=== PATIENT | female | born 1950 | race Caucasian/White ===

== ENCOUNTER → 2018-09-16 11:01 | Outpatient (CLI) | payer OTHER, SELFPAY ==
--- NOTE | 2018-09-16 11:06 | DI.MG.S_ITS ---
BILATERAL DIGITAL SCREENING MAMMOGRAM 3D/2D WITH CAD: 09/16/2018 CLINICAL: Routine screening. Comparison is made to exams dated: 01/14/2015 mammogram, 11/15/2007 mammogram, and 11/02/2007 mammogram - [facility]. The tissue of both breasts is heterogeneously dense. This may lower the sensitivity of mammography. Current study was also evaluated with a Computer Aided Detection (CAD) system. There is possible architectural distortion in the right breast posterior depth outer region seen on the craniocaudal view only. This is new from comparison exam of 01/14/2015 and best seen on [facility] tomosynthesis image 25/78. No other significant masses, calcifications, or other findings are seen in either breast. There are vascular calcifications in the left breast and multiple mole markers overlying the left breast. IMPRESSION: INCOMPLETE: NEEDS ADDITIONAL IMAGING EVALUATION The possible architectural distortion in the right breast is indeterminate. Additional views with possible ultrasound are recommended. This exam was interpreted at Station ID: [id number]. NOTE: For mammograms, a report in lay terms will be sent to the patient. Approximately 15% of breast malignancies will not be visualized mammographically. In the management of a palpable breast mass, a negative mammogram must not discourage biopsy of a clinically suspicious lesion. Electronically Signed By: Arya Duke M.D. ecl/:09/16/2018 19:32:35 letter sent: Additional Imaging Needed ACR BI-RADS Category 0: Incomplete [id number]
== END ==
PROVIDERS: PCP Family Medicine; Visit Provider Family Medicine
DX: Z12.31 Encounter for screening mammogram for malignant neoplasm of breast (principal)
CPT/HCPCS: 77063; 77067

== ENCOUNTER → 2018-10-03 09:57 | Outpatient (CLI) | payer OTHER, SELFPAY ==
--- NOTE | 2018-10-03 | DI.MG.S_ITS ---
UNILATERAL RIGHT DIGITAL DIAGNOSTIC MAMMOGRAM 3D/2D WITH ADDITIONAL VIEWS: 10/03/2018 CLINICAL: Additional evaluation requested from prior study. Comparison is made to exams dated: 09/16/2018 mammogram, 01/14/2015 mammogram, and 11/15/2007 mammogram - [facility]. The tissue of right breast is heterogeneously dense. This may lower the sensitivity of mammography. There is subtle persistent architectural distortion in the right breast at 11 o'clock middle depth that appears less prominent on additional imaging today. No other significant masses or calcifications are seen in the breast. IMPRESSION: INCOMPLETE: NEEDS ADDITIONAL IMAGING EVALUATION The subtle architectural distortion in the right breast appears less conspicuous on additional imaging today but remains indeterminate. An ultrasound is recommended. This was scheduled to follow mammographic evaluation today, but the patient had to leave before the sonogram could be performed. The patient will be contacted to reschedule the ultrasound appointment. This exam was interpreted at Station ID: [id number]. NOTE: For mammograms, a report in lay terms will be sent to the patient. Approximately 15% of breast malignancies will not be visualized mammographically. In the management of a palpable breast mass, a negative mammogram must not discourage biopsy of a clinically suspicious lesion. Electronically Signed By: Nikolas Sousa M.D. aty/:10/04/2018 07:23:07 Entry: - 10/04/2018 07:23:07 letter sent: Need Ultrasound ACR BI-RADS Category 0: Incomplete [id number]
== END ==
PROVIDERS: PCP Family Medicine; Visit Provider Family Medicine
DX: R92.8 Other abnormal and inconclusive findings on diagnostic imaging of breast (principal)
CPT/HCPCS: 77065; G0279

== ENCOUNTER → 2018-10-11 12:47 | Outpatient (CLI) | payer OTHER, SELFPAY ==
--- NOTE | 2018-10-11 | DI.US.S_ITS ---
LIMITED ULTRASOUND OF RIGHT BREAST: 10/11/2018 CLINICAL: Additional views Additional evaluation requested from prior study. Comparison is made to exams dated: 10/03/2018 mammogram, 09/16/2018 mammogram, and 11/15/2007 [facility]. Real-time ultrasound of the right breast was performed on the area of interest. There is 0.9 cm x 0.7 cm x 0.8 cm oval mass with an indistinct margin in the right breast at 11 o'clock anterior depth. This oval mass is hyperechoic. This correlates with mammography findings. Color flow imaging demonstrates that there is no vascularity present. IMPRESSION: PROBABLY BENIGN The 0.9 cm x 0.7 cm x 0.8 cm oval mass in the right breast resembles fat necrosis and is probably benign. Follow-up mammogram and ultrasound in 6 months is recommended. A follow-up mammogram and an ultrasound in 6 months is recommended to demonstrate stability. This exam was interpreted at Station ID: [id number]. Electronically Signed By: Juan cano/katharine:10/11/2018 14:24:46 letter sent: Followup Recommended Ultrasound BI-RADS: 3 Probably benign
== END ==
PROVIDERS: PCP Family Medicine; Visit Provider Family Medicine
DX: R92.8 Other abnormal and inconclusive findings on diagnostic imaging of breast (principal); N63.11 Unspecified lump in the right breast, upper outer quadrant
CPT/HCPCS: 76642

== ENCOUNTER 2020-05-10 06:19 | Emergency (ER) | payer MEDICARE, OTHER, SELFPAY ==
[2020-05-10] VITALS (7 sets, daily range): BP systolic 115–132; BP diastolic 60–88; PULSE 55–60; RESP 12–18; TEMP 36.4; O2SAT 98–100
--- NOTE | 2020-05-10 06:21 | DI.RAD.S_ITS ---
PROCEDURE: XR CHEST 1V INDICATIONS: chest pressure TECHNIQUE: One view of the chest was acquired. COMPARISON: None. FINDINGS: Surgical changes and devices: None. Lungs and pleura: Lungs are clear. No pleural effusions or pneumothorax. Mediastinum: Mediastinal contours appear normal. Heart size is normal. Bones and chest wall: No suspicious bony lesions. Overlying soft tissues appear unremarkable. IMPRESSION: No acute cardiopulmonary disease process. Dictated by: Marie Nickerson MD, PhD on 05/10/2020 at 8:27 Approved by: Marie Nickerson MD, PhD on 05/10/2020 at 8:27
--- NOTE | 2020-05-10 06:39 | ED_ITS ---
HPI - Syncope <Foreign Feliz DO - Last Filed: 05/10/20 22:36> General Chief Complaint: Syncope Stated Complaint: tightness in chest area since last night Time Seen by Provider: 05/10/20 06:21 Source: patient Mode of arrival: Wheelchair Limitations: no limitations History of Present Illness HPI narrative: 69-year-old female nonsmoker with non contributory medical history presents with a chief complaint anterior chest pain that started yesterday morning and has largely persisted since. She states that at times it is sharp and other times heavy. She denies any radiation of her pain and states that is worse with palpation. She denies any injury or overuse. She denies any history of the same. She feels short of breath and has been nauseated. She questions whether not the nausea may be related to the pain. She had no improvement with aspirin. She states that this morning she started feeling nauseated and upon standing up she felt extremely lightheaded and then had a syncopal episode. It was not witnessed but when her came to her side she was still unconscious and struggling to breathe until he reposition her head, she quickly woke up. She does state that she has had increased fatigue with exertion over the past few months. She denies any recent travel, cough or hemoptysis. She denies exposure to persons known or under suspicion to have COVID-19. She does state that she has had syncope from vasovagal scenarios in the past with nausea and vomiting and often pain brings on significant nausea for her. complaint: loss of consciousness Onset (ago): minute(s) -: minutes(s) Prodromal symptoms: lightheaded, chest pain, shortness of breath and kaushik sea/vomiting Witnessed: no Context: standing up and related to severe pain Injuries sustained associated with event: none Current symptoms: chest pain Treatments prior to arrival: none Related Data Home Medications Medication Instructions Recorded Confirmed No Known Home Medications 11/07/18 11/07/18 Allergies Allergy/AdvReac Type Severity Reaction Status Date / Time amoxicillin [AMOXICILLIN] Allergy Severe BRADYCARDIA, Verified 11/07/18 11:19 HYPOTENSIVE lidocaine [LIDOCAINE] Allergy Severe HYPOTENSIVE Verified 11/07/18 11:19 AND BRADYCARDIA procaine [From Novocain] Allergy Severe Hypotension Verified 05/10/20 07:02 Arnica (Arnica [place]) Allergy Mild RASH Verified 11/07/18 11:19 [ARNICA] mercury (elemental) Allergy Mild RASH, ITCHY Verified 11/07/18 11:19 [MERCURY (ELEMENTAL)] Review of Systems <Foreign Feliz DO - Last Filed: 05/10/20 22:36> Constitutional Constitutional: Denies chills, Denies fatigue, Denies fever(s), Denies frequent falls, Denies lethargy and Denies weakness Eyes Eyes: Denies change in vision, Denies eye discharge, Denies irritation and Denies loss of vision ENT Ears, Nose, Mouth, and Throat: Denies change in voice, Denies dizziness, Denies neck pain, Denies sore throat and Denies throat swelling Cardiovascular Cardiovascular: Reports chest pain, Reports syncope, Denies irregular heart rhythm, Reports lightheadedness, Denies palpitations, Denies dyspnea, Denies dyspnea on exertion and Denies orthopnea Respiratory Respiratory: Denies cough, Denies dyspnea, Denies dyspnea on exertion and Denies wheezing Gastrointestinal Gastrointestinal: Denies abdominal pain, Denies change in bowel habits, Denies diarrhea, Reports nausea and Denies vomiting Musculoskeletal Musculoskeletal: Denies neck pain and Denies numbness Integumentary/Breasts Skin/Breast: Denies pruritus, Denies erythema, Denies rash and Denies wounds Neurologic Neurologic: Denies behavioral changes, Denies confusion, Denies dizziness, Reports syncope, Denies frequent falls, Denies loss of vision, Denies numbness and Denies weakness Psychiatric Psychiatric: Denies anxiety, Denies behavioral changes, Denies confusion, Denies depression, Denies homicidal ideation and Denies suicidal ideation Endocrine Endocrine: Denies fatigue, Denies flushing and Denies palpitations Hematologic/Lymphatic Hematologic/Lymphatic: Denies easy bruising Allergic/Immunologic Allergic/Immunologic: Denies urticaria, Denies throat swelling and Denies wheezing Patient History <Foreign Feliz DO - Last Filed: 05/10/20 22:36> Surgical History History of cataract removal with insertion of prosthetic lens Status post hysterectomy Status post parathyroidectomy Family History Brother Age: 70 Hypertension Father Heart disease High cholesterol Mother Heart disease Hypertension Grandfather Heart disease Grandmother Heart disease Sister Age: 68 High cholesterol Social History marital status: Smoking Status: Never smoker alcohol intake: current (ON OCCASION ) substance use type: does not use Smoking Status: Never smoker Substance Use Type: does not use Exam <DO Valentine Hartman Last Filed: 05/10/20 22:36> Narrative Exam Narrative: GENERAL: [69] year old patient appears stated age. Well- nourished, well-developed patient, in mild distress. HEAD: Atraumatic. Normocephalic. EYES: Pupils equal round and reactive. Extraocular motions intact. No scleral icterus. No injection or drainage. ENT: Nose without bleeding, purulent drainage. Throat without erythema, tonsillar hypertrophy or exudate. Airway patent. NECK: Trachea midline. Non tender CARDIOVASCULAR: Regular rate and rhythm without murmurs, gallops, or rubs. Anterior chest tender to palpation with minor palpable swelling, no redness, warmth, or fluctuance. RESPIRATORY: Clear to auscultation. Breath sounds equal bilaterally. No wheezes, rales, or rhonchi. GASTROINTESTINAL: Abdomen soft, non-tender, nondistended. EXTREMITIES: No edema or joint tenderness. BACK: Nontender without deformity or crepitance. No flank tenderness. NEURO: AOx3. SKIN: No rash or erythema of visible areas Initial Vital Signs Initial Vital Signs: Vital Signs Temperature 97.5 F L 05/10/20 06:20 Pulse Rate 60 05/10/20 06:20 Respiratory Rate 18 05/10/20 06:20 Blood Pressure 115/88 05/10/20 06:20 Pulse Oximetry 99 05/10/20 06:20 <Brittaney Forte DO - Last Filed: 05/10/20 09:50> Initial Vital Signs Initial Vital Signs: Vital Signs Temperature 97.5 F L 05/10/20 06:20 Pulse Rate 60 05/10/20 06:20 Respiratory Rate 18 05/10/20 06:20 Blood Pressure 115/88 05/10/20 06:20 Pulse Oximetry 99 05/10/20 06:20 Course <Foreign Feliz DO - Last Filed: 05/10/20 22:36> Orders Ordered: Discontinued Medications Aspirin (Aspirin Chew) 324 mg PO NOW ONE Stop: 05/10/20 06:22 Last Admin: 05/10/20 06:44 Dose: 324 mg Documented by: RMARTIN Sodium Chloride (Normal Saline 0.9%) 1,000 mls @ 150 mls/hr IV CONT [facility] Last Infusion: 05/10/20 09:32 Dose: 0 mls/hr Documented by: Admin: 05/10/20 06:44 Dose: 150 mls/hr Documented by: RMARTIN Ketorolac Tromethamine (Toradol) 30 mg IV NOW ONE Stop: 05/10/20 07:36 Last Admin: 05/10/20 08:02 Dose: 30 mg Documented by: MARIANO Vital Signs Vital signs: Vital Signs - 8 hr 05/10/20 06:20 05/10/20 06:53 05/10/20 07:00 Temperature 97.5 F L Pulse Rate 60 60 57 L Respiratory Rate 18 15 12 Blood Pressure 115/88 132/60 Pulse Oximetry 99 98 98 05/10/20 07:30 05/10/20 07:31 05/10/20 08:00 Temperature Pulse Rate 59 L 57 L 57 L Respiratory Rate 16 12 13 Blood Pressure 126/64 130/65 Pulse Oximetry 100 99 99 <Brittaney Forte, DO - Last Filed: 05/10/20 09:50> Orders Ordered: Discontinued Medications Aspirin (Aspirin Chew) 324 mg PO NOW ONE Stop: 05/10/20 06:22 Last Admin: 05/10/20 06:44 Dose: 324 mg Documented by: RMARTIN Sodium Chloride (Normal Saline 0.9%) 1,000 mls @ 150 mls/hr IV CONT [facility] Last Infusion: 05/10/20 09:32 Dose: 0 mls/hr Documented by: Admin: 05/10/20 06:44 Dose: 150 mls/hr Documented by: RMARTIN Ketorolac Tromethamine (Toradol) 30 mg IV NOW ONE Stop: 05/10/20 07:36 Last Admin: 05/10/20 08:02 Dose: 30 mg Documented by: MARIANO Vital Signs Vital signs: Vital Signs - 8 hr 05/10/20 06:20 05/10/20 06:53 05/10/20 07:00 Temperature 97.5 F L Pulse Rate 60 60 57 L Respiratory Rate 18 15 12 Blood Pressure 115/88 132/60 Pulse Oximetry 99 98 98 05/10/20 07:30 05/10/20 07:31 05/10/20 08:00 Temperature Pulse Rate 59 L 57 L 57 L Respiratory Rate 16 12 13 Blood Pressure 126/64 130/65 Pulse Oximetry 100 99 99 MDM - Syncope <Foreign Feliz, - Last Filed: 05/10/20 22:36> Lab Data Result diagrams: 05/10/20 06:35 05/10/20 06:35 Labs: Lab Results 05/10/20 05/10/20 05/10/20 Range/Units 06:35 06:35 06:35 WBC 6.1 (4.5-11.0) X10^3/uL RBC 4.74 (4.0-5.2) X10^6/uL Hgb 14.4 (12.0-16.0) g/dL Hct 42.3 (36-46) % MCV 89.3 (80-100) fL MCH 30.5 (26-34) PG MCHC 34.2 (30-36) % RDW 13.1 (11.6-14.8) % Plt Count 190 (150-400) X10^3/uL Neut % (Auto) 61.8 (50-75) % Lymph % (Auto) 26.8 (25-40) % Converse % (Auto) 6.6 (3-14) % Eos % (Auto) 3.9 (2-4) % Baso % (Auto) 0.9 (0-2) % Neut # (Auto) 3800 (9406-9876) /uL Lymph # (Auto) 1600 (0879-5143) /uL Converse # (Auto) 400 (0-900) /uL Eos # (Auto) 200 (0-450) /uL Baso # (Auto) 100 (0-100) /uL PT 11.0 (10.1-12.7) SECONDS INR 1.0 (0.9-1.3) D-Dimer 202 (<230) ng/mL Sodium 138 (137-145) mmol/L Potassium 4.1 (3.4-5.1) mmol/L Chloride 104 (98-107) mmol/L Carbon Dioxide 24 (22-32) mmol/L BUN 16 (7-17) mg/dL Creatinine 0.98 (0.52-1.04) mg/dL Estimated GFR 56.3 L (>60) mL/min BUN/Creatinine Ratio 16.3 (6-22) Glucose 125 H (80-110) mg/dL Calcium 10.0 (8.4-10.2) mg/dL Total Bilirubin 0.9 (0.2-1.3) mg/dL AST 44 H (14-36) IU/L ALT 39 H (<35) IU/L Alkaline Phosphatase 74 (38-126) U/L Total Creatine Kinase 52 (30-135) U/L CK-MB (CK-2) TNP CK-MB (CK-2) Rel Index TNP Troponin I < 0.012 (0.01-0.034) ng/mL NT-Pro-B Natriuret Pep 47 (<125) pg/mL Total Protein 7.5 (6.3-8.2) g/dL Albumin 4.4 (3.5-5.0) g/dL Globulin 3.1 (1.7-4.1) g/dL Albumin/Globulin Ratio 1.4 (1.0-2.8) Lipase 139 (23-300) U/L 05/10/20 Range/Units 08:35 WBC (4.5-11.0) X10^3/uL RBC (4.0-5.2) X10^6/uL Hgb (12.0-16.0) g/dL Hct (36-46) % MCV (80-100) fL MCH (26-34) PG MCHC (30-36) % RDW (11.6-14.8) % Plt Count (150-400) X10^3/uL Neut % (Auto) (50-75) % Lymph % (Auto) (25-40) % Converse % (Auto) (3-14) % Eos % (Auto) (2-4) % Baso % (Auto) (0-2) % Neut # (Auto) (9621-4473) /uL Lymph # (Auto) (7069-4133) /uL Converse # (Auto) (0-900) /uL Eos # (Auto) (0-450) /uL Baso # (Auto) (0-100) /uL PT (10.1-12.7) SECONDS INR (0.9-1.3) D-Dimer (<230) ng/mL Sodium (137-145) mmol/L Potassium (3.4-5.1) mmol/L Chloride (98-107) mmol/L Carbon Dioxide (22-32) mmol/L BUN (7-17) mg/dL Creatinine (0.52-1.04) mg/dL Estimated GFR (>60) mL/min BUN/Creatinine Ratio (6-22) Glucose (80-110) mg/dL Calcium (8.4-10.2) mg/dL Total Bilirubin (0.2-1.3) mg/dL AST (14-36) IU/L ALT (<35) IU/L Alkaline Phosphatase (38-126) U/L Total Creatine Kinase (30-135) U/L CK-MB (CK-2) CK-MB (CK-2) Rel Index Troponin I < 0.012 (0.01-0.034) ng/mL NT-Pro-B Natriuret Pep (<125) pg/mL Total Protein (6.3-8.2) g/dL Albumin (3.5-5.0) g/dL Globulin (1.7-4.1) g/dL Albumin/Globulin Ratio (1.0-2.8) Lipase (23-300) U/L <Brittaney Forte, DO - Last Filed: 05/10/20 09:50> Lab Data Attestation: I reviewed the patient's lab results. Labs: Lab Results 05/10/20 05/10/20 05/10/20 Range/Units 06:35 06:35 06:35 WBC 6.1 (4.5-11.0) X10^3/uL RBC 4.74 (4.0-5.2) X10^6/uL Hgb 14.4 (12.0-16.0) g/dL Hct 42.3 (36-46) % MCV 89.3 (80-100) fL MCH 30.5 (26-34) PG MCHC 34.2 (30-36) % RDW 13.1 (11.6-14.8) % Plt Count 190 (150-400) X10^3/uL Neut % (Auto) 61.8 (50-75) % Lymph % (Auto) 26.8 (25-40) % Converse % (Auto) 6.6 (3-14) % Eos % (Auto) 3.9 (2-4) % Baso % (Auto) 0.9 (0-2) % Neut # (Auto) 3800 (5516-5196) /uL Lymph # (Auto) 1600 (6959-0939) /uL Converse # (Auto) 400 (0-900) /uL Eos # (Auto) 200 (0-450) /uL Baso # (Auto) 100 (0-100) /uL PT 11.0 (10.1-12.7) SECONDS INR 1.0 (0.9-1.3) D-Dimer 202 (<230) ng/mL Sodium 138 (137-145) mmol/L Potassium 4.1 (3.4-5.1) mmol/L Chloride 104 (98-107) mmol/L Carbon Dioxide 24 (22-32) mmol/L BUN 16 (7-17) mg/dL Creatinine 0.98 (0.52-1.04) mg/dL Estimated GFR 56.3 L (>60) mL/min BUN/Creatinine Ratio 16.3 (6-22) Glucose 125 H (80-110) mg/dL Calcium 10.0 (8.4-10.2) mg/dL Total Bilirubin 0.9 (0.2-1.3) mg/dL AST 44 H (14-36) IU/L ALT 39 H (<35) IU/L Alkaline Phosphatase 74 (38-126) U/L Total Creatine Kinase 52 (30-135) U/L CK-MB (CK-2) TNP CK-MB (CK-2) Rel Index TNP Troponin I < 0.012 (0.01-0.034) ng/mL NT-Pro-B Natriuret Pep 47 (<125) pg/mL Total Protein 7.5 (6.3-8.2) g/dL Albumin 4.4 (3.5-5.0) g/dL Globulin 3.1 (1.7-4.1) g/dL Albumin/Globulin Ratio 1.4 (1.0-2.8) Lipase 139 (23-300) U/L 05/10/20 Range/Units 08:35 WBC (4.5-11.0) X10^3/uL RBC (4.0-5.2) X10^6/uL Hgb (12.0-16.0) g/dL Hct (36-46) % MCV (80-100) fL MCH (26-34) PG MCHC (30-36) % RDW (11.6-14.8) % Plt Count (150-400) X10^3/uL Neut % (Auto) (50-75) % Lymph % (Auto) (25-40) % Converse % (Auto) (3-14) % Eos % (Auto) (2-4) % Baso % (Auto) (0-2) % Neut # (Auto) (3035-9250) /uL Lymph # (Auto) (5257-6817) /uL Converse # (Auto) (0-900) /uL Eos # (Auto) (0-450) /uL Baso # (Auto) (0-100) /uL PT (10.1-12.7) SECONDS INR (0.9-1.3) D-Dimer (<230) ng/mL Sodium (137-145) mmol/L Potassium (3.4-5.1) mmol/L Chloride (98-107) mmol/L Carbon Dioxide (22-32) mmol/L BUN (7-17) mg/dL Creatinine (0.52-1.04) mg/dL Estimated GFR (>60) mL/min BUN/Creatinine Ratio (6-22) Glucose (80-110) mg/dL Calcium (8.4-10.2) mg/dL Total Bilirubin (0.2-1.3) mg/dL AST (14-36) IU/L ALT (<35) IU/L Alkaline Phosphatase (38-126) U/L Total Creatine Kinase (30-135) U/L CK-MB (CK-2) CK-MB (CK-2) Rel Index Troponin I < 0.012 (0.01-0.034) ng/mL NT-Pro-B Natriuret Pep (<125) pg/mL Total Protein (6.3-8.2) g/dL Albumin (3.5-5.0) g/dL Globulin (1.7-4.1) g/dL Albumin/Globulin Ratio (1.0-2.8) Lipase (23-300) U/L Imaging Data Chest x-ray: Radiologist's Impression: PROCEDURE: XR CHEST 1V INDICATIONS: chest pressure TECHNIQUE: One view of the chest was acquired. COMPARISON: None. FINDINGS: Surgical changes and devices: None. Lungs and pleura: Lungs are clear. No pleural effusions or pneumothorax. Mediastinum: Mediastinal contours appear normal. Heart size is normal. Bones and chest wall: No suspicious bony lesions. Overlying soft tissues appear unremarkable. IMPRESSION: No acute cardiopulmonary disease process. Dictated by: Marie Nickerson MD, PhD on 05/10/2020 at 8:27 ECG Data Attestation: I personally reviewed and interpreted this ECG as follows: Prior ECG tracings: not available for review Interpretation: Normal sinus rhythm 16 p.r. interval 168 QTC 416 T-wave inversion noted only in lead [address] elevation depression or signs of ischemia EKG 2. Sinus rhythm rate 56 p.r. interval 176 QTC 397 QRS 82 no changes from previous EKG no ischemia noted MDM Narrative Medical decision making narrative: Patient signed out to me by Dr. Feliz of seen evaluated her myself. Patient has a history of very sensitive a is a vagal response. She felt that she was going to pass out secondary to pain in her ch est this morning. She got extremely nauseous and passed out. This is very similar to all the other previous times that she has passed out. Her discomfort in her chest is reproducible with movement and palpation. She denies pain or taking a deep breath she denies any shortness of breath. She feels like there is something in her chest. She denies any injury. She woke up yesterday morning and had this chest discomfort she was able to go work in the [employer] yesterday but pain continued. The patient received Toradol and pain is completely gone. Chest x-ray does not show any abnormality. At this time symptoms are consistent with musculoskeletal pain, she had improvement with Toradol. EKGs and troponin are negative at this time recommend outpatient follow-up. Discharge Plan Departure Patient Disposition: Home Clinical Impression: Vasovagal syncope, Costochondritis Discharge Date/Time: 05/10/20 09:35 Instructions: Costochondritis Activity Restrictions/Additional Instructions: *You have been diagnosed with vasovagal reaction and costochondritis *What to do: At this time her chest discomfort is likely musculoskeletal. This can take 1-2 weeks to heal. Recommend resting. Do not do activities aggravated *Continue to take medications as directed Ibuprofen 800 mg every 8 hours if needed for [id number] pain *Follow up with your primary care provider in 2-3 days *Return to ER if you should have increased pain, increased shortness of breath, is recurrent syncopal episodes or any new, worsening or concerning symptoms Prescriptions: No Action No Known Home Medications RF: 0 Referrals: Bob Hall MD [Primary Care Provider] - ED Sign-out <Foreign Feliz DO - Last Filed: 05/10/20 22:36> Cosign ED Attending Hayleyature Attestation: I was immediately available in the department for consultation. This documentation has been reviewed and I agree with assessment and plan. Supervised by Foreign Feliz DO
[2020-05-10 06:42] LABS: Add Manual Diff / Slide Review NO; Basophils Absolute Auto 100 /uL (0-100); Basophils Percent Auto 0.9 % (0-2); Eosinophils Absolute Auto 200 /uL (0-450); Eosinophils Percent Auto 3.9 % (2-4); Hematocrit 42.3 % (36-46); Hemoglobin 14.4 g/dL (12.0-16.0); Lymphocytes Absolute Auto 1600 /uL (1100-4500); Lymphocytes Percent Auto 26.8 % (25-40); Mean Corpuscular HGB Conc 34.2 % (30-36); Mean Corpuscular Hemoglobin 30.5 PG (26-34); Mean Corpuscular Volume 89.3 fL (80-100); Monocytes Absolute Auto 400 /uL (0-900); Monocytes Percent Auto 6.6 % (3-14); Neutrophils Absolute Auto 3800 /uL (1500-7000); Neutrophils Percent Auto 61.8 % (50-75); Platelet Count 190 X10^3/uL (150-400); Red Blood Cell Count 4.74 X10^6/uL (4.0-5.2); Red Cell Distribution Width 13.1 % (11.6-14.8); White Blood Cell Count 6.1 X10^3/uL (4.5-11.0)
[2020-05-10] MEDS: ASPIRIN 81 MG CHEW TAB 324 MG PO (06:44)
[2020-05-10] MEDS: SODIUM CHLORIDE 0.9% 1,000 ML 150 ML IV (06:44)
[2020-05-10 06:51] LABS: D Dimer 202 ng/mL (<230)
[2020-05-10 06:52] LABS: Alanine Aminotransferase 39 IU/L (<35); Albumin 4.4 g/dL (3.5-5.0); Albumin Globulin Ratio 1.4 (1.0-2.8); Alkaline Phosphatase 74 U/L (38-126); Aspartate Aminotransferase 44 IU/L (14-36); BUN Creatinine Ratio 16.3 (6-22); Bilirubin Total 0.9 mg/dL (0.2-1.3); Blood Urea Nitrogen 16 mg/dL (7-17); Carbon Dioxide 24 mmol/L (22-32); Chloride 104 mmol/L (98-107); Creatine Kinase 52 U/L (30-135); Estimated Glomerular Filt Rate 56.3 mL/min (>60); Globulin 3.1 g/dL (1.7-4.1); Glucose 125 mg/dL (80-110); HEMOLYSIS < 15 (0-50); Lipase 139 U/L (23-300); Potassium 4.1 mmol/L (3.4-5.1); Sodium 138 mmol/L (137-145); Total Protein 7.5 g/dL (6.3-8.2)
[2020-05-10 07:04] LABS: NT-proBNP (BNP-Adult 18+) 47 pg/mL (<125); Troponin I < 0.012 ng/mL (0.01-0.034)
[2020-05-10] MEDS: KETOROLAC 60 MG/2 ML VIAL 30 MG IV (08:02)
[2020-05-10 09:09] LABS: Troponin I < 0.012 ng/mL (0.01-0.034)
== END 2020-05-10 09:35 | disposition home or self-care (01) ==
PROVIDERS: Emergency Medicine; Emergency Provider Emergency Medicine; PCP Family Medicine
DX: R55 Syncope and collapse (principal); M94.0 Chondrocostal junction syndrome [Tietze]; R06.02 Shortness of breath; R11.0 Nausea; R07.9 Chest pain, unspecified
CPT/HCPCS: 36415; 71045; 80053; 82550; 83690; 83880; 84484; 85025; 85379; 85610; 93005; 96361; 96374; 99284; J1885

== ENCOUNTER 2021-01-01 06:45 | Emergency (ER) | payer MEDICARE, OTHER, SELFPAY ==
[2021-01-01] VITALS (8 sets, daily range): BP systolic 115–141; BP diastolic 56–80; PULSE 51–66; RESP 16–20; O2SAT 96–100; BMI 29.8
--- NOTE | 2021-01-01 06:58 | ED_ITS ---
HPI - General Adult General Chief complaint: Syncope Stated complaint: diarrhea/sweaty/syncope x12 hours Time Seen by Provider: 01/01/21 06:50 Source: patient History of Present Illness HPI narrative: Patient is a 70-year-old female who denies any other diagnosed m edical problems. Takes no medications who went to [facility] Overnight she woke up and had several episodes of diarrhea. She states that during the night she had 1 episode where she was sitting on the toilet and apparently passed out. She slumped over to the wall next to the toilet. She did not fall. Did not hit her head. Her got out of bed and went in to check on her. He stated that she was pale and sweaty. He later on the ground and put her feet elevated. There was no reported seizure-like activity. He was able to get her back into the bed. This morning woke up and had another similar episode however she did not actually pass out she states that her abdominal cramping that happened overnight has improved. She denies any nausea or vomiting. No rashes. She states this is the 4th time over the course of her life that the symptoms have occurred. She stated that she has been to the emergency department before because of the symptoms. Related Data Home Medications Medication Instructions Recorded Confirmed No Known Home Medications 11/07/18 11/07/18 Allergies Allergy/AdvReac Type Severity Reaction Status Date / Time amoxicillin [AMOXICILLIN] Allergy Severe BRADYCARDIA, Verified 11/07/18 11:19 HYPOTENSIVE lidocaine [LIDOCAINE] Allergy Severe HYPOTENSIVE Verified 11/07/18 11:19 AND BRADYCARDIA procaine [From Novocain] Allergy Severe Hypotension Verified 05/10/20 07:02 Arnica (Arnica [place]) Allergy Mild RASH Verified 11/07/18 11:19 [ARNICA] mercury (elemental) Allergy Mild RASH, ITCHY Verified 11/07/18 11:19 [MERCURY (ELEMENTAL)] Review of Systems Constitutional Constitutional: Reports chills, Denies fever(s), Denies frequent falls, Denies headache(s) and Reports lethargy Eyes Eyes: Denies change in vision ENT Ears, Nose, Mouth, and Throat: Denies vertigo, Denies dizziness, Denies headache(s) and Denies sore throat Cardiovascular Cardiovascular: Denies chest pain, Reports syncope, Denies rapid heart rate and Denies dyspnea Respiratory Respiratory: Denies dyspnea Gastrointestinal Gastrointestinal: Reports abdominal pain, Reports cramping, Reports diarrhea, Denies nausea and Denies vomiting Genitourinary Genitourinary: Denies dysuria Genitourinary: Denies dysuria Musculoskeletal Musculoskeletal: Denies arthralgias and Denies myalgias Integumentary/Breasts Skin/Breast: Denies rash Neurologic Neurologic: Denies confusion, Denies vertigo, Denies dizziness, Reports syncope, Denies frequent falls, Denies headache(s) and Denies convulsions Psychiatric Psychiatric: Denies confusion Endocrine Endocrine: Reports flushing Hematologic/Lymphatic On Anticoagulants: No Allergic/Immunologic Allergic/Immunologic: Denies urticaria Patient History Medical History Cataracts, bilateral Surgical History History of cataract removal with insertion of prosthetic lens Status post hysterectomy Status post parathyroidectomy Family History Brother Age: 71 Hypertension Father Heart disease High cholesterol Mother Heart disease Hypertension Grandfather Heart disease Grandmother Heart disease Sister Age: 69 High cholesterol Social History marital status: Smoking Status: Never smoker alcohol intake: current (ON OCCASION ) substance use type: does not use Smoking Status: Never smoker Substance Use Type: does not use Exam Initial Vital Signs Initial Vital Signs: Vital Signs Pulse Rate 66 01/01/21 06:45 Respiratory Rate 18 01/01/21 06:45 Blood Pressure 141/71 H 01/01/21 06:45 Pulse Oximetry 97 01/01/21 06:45 Const General: cooperative, comfortable and well developed Limitations: mental status not altered HENMT Head: normal to inspection and normocephalic Eyes General: appearance normal, both eyes and all related structures Chest Chest: No tenderness Resp Effort & Inspection: normal respiratory effort Auscultation: clear to auscultation bilaterally Cardio Rate: regular rate Rhythm: regular rhythm GI Inspection: non-distended Palpation: soft Skin Lesions: no lesions Rashes: no rashes Neuro General: patient alert, patient awake and patient oriented x3 Cognition: normal cognition Speech: speech normal Gait: normal gait Extrem General: normal to inspection and capillary refill normal Psych Appearance: grossly normal and well kempt Scores GCS Vito coma scale eye opening: Spontaneous [place] coma scale verbal response: Orientated Vito coma scale motor response: Obey commands Vito coma scale total score: 15 Course Orders Ordered: ED Orders 01/01/21 06:59 EKG-12 Lead Stat 01/01/21 07:18 COVID19 -Nasal swab/Pre-Proc Stat 01/01/21 07:20 Complete Blood Count AUTO DIFF Stat Comprehensive Metabolic Panel Stat Lipase Stat Discontinued Medications Sodium Chloride (Normal Saline 0.9%) 1,000 mls @ 1,000 mls/hr IV BOLUS ONE Stop: 01/01/21 07:57 Last Infusion: 01/01/21 08:42 Dose: 0 mls/hr Documented by: Admin: 01/01/21 07:18 Dose: 1,000 mls/hr Documented by: MARIANO Vital Signs Vital signs: Vital Signs - 8 hr 01/01/21 06:45 01/01/21 06:53 01/01/21 07:00 Pulse Rate 66 66 57 L Respiratory Rate 18 Blood Pressure 141/71 H 141/71 H Pulse Oximetry 97 96 100 01/01/21 07:01 01/01/21 07:30 01/01/21 07:36 Pulse Rate 59 L 59 L 63 Respiratory Rate 20 Blood Pressure 115/56 L 121/78 Pulse Oximetry 96 99 01/01/21 08:00 01/01/21 08:46 Pulse Rate 54 L 51 L Respiratory Rate 16 16 Blood Pressure 119/63 122/80 Pulse Oximetry 99 98 Medical Decision Making Lab Data Lab results reviewed: Yes I reviewed the patient's lab results. Result diagrams: 01/01/21 07:20 01/01/21 07:20 Labs: Lab Results 01/01/21 01/01/21 01/01/21 Range/Units 07:18 07:20 07:20 WBC 6.3 (4.5-11.0) X10^3/uL RBC 4.85 (4.0-5.2) X10^6/uL Hgb 14.7 (12.0-16.0) g/dL Hct 43.4 (36-46) % MCV 89.5 (80-100) fL MCH 30.3 (26-34) PG MCHC 33.8 (30-36) % RDW 13.4 (11.6-14.8) % Plt Count 197 (150-400) X10^3/uL Neut % (Auto) 69.9 (50-75) % Lymph % (Auto) 23.5 L (25-40) % Gibson % (Auto) 3.3 (3-14) % Eos % (Auto) 2.7 (2-4) % Baso % (Auto) 0.6 (0-2) % Neut # (Auto) 4400 (4832-2838) /uL Lymph # (Auto) 1500 (5972-8958) /uL Gibson # (Auto) 200 (0-900) /uL Eos # (Auto) 200 (0-450) /uL Baso # (Auto) 0 (0-100) /uL Sodium 138 (137-145) mmol/L Potassium 4.6 (3.4-5.1) mmol/L Chloride 103 (98-107) mmol/L Carbon Dioxide 27 (22-32) mmol/L BUN 17 (7-17) mg/dL Creatinine 0.95 (0.52-1.04) mg/dL Estimated GFR 58.2 L (>60) mL/min BUN/Creatinine Ratio 17.9 (6-22) Glucose 147 H (80-110) mg/dL Calcium 10.0 (8.4-10.2) mg/dL Total Bilirubin 0.9 (0.2-1.3) mg/dL AST 32 (14-36) IU/L ALT 30 (<35) IU/L Alkaline Phosphatase 63 (38-126) U/L Total Protein 7.6 (6.3-8.2) g/dL Albumin 4.6 (3.5-5.0) g/dL Globulin 3.0 (1.7-4.1) g/dL Albumin/Globulin Ratio 1.5 (1.0-2.8) Lipase 115 (23-300) U/L SARS-CoV-2 (PCR) Negative (Negative) Point of Care Testing Stool Occult Blood Negative Point of care testing: Point of Care Testing Stool Occult Blood Negative ECG Data Attestation: I personally reviewed and interpreted this ECG as follows: Prior ECG tracings: not available for review Interpretation: Sinus rhythm Ventricular rate is 62 Normal axis Normal QRS Normal QTC No ST T wave changes MDM Narrative Medical decision making narrative: Asymptomatic since arrival here to the emergency department. Labs unremarkable. EKG unremarkable. This does sound very much like a vasovagal syncope. I feel we can hold on head CT. Low suspicion for seizure. Low suspicion for CVA/TIA. Discussed with her return precautions. She will talk with her primary doctor about potential further wor kup. She expressed understanding and agreement. Discharge Plan Departure Patient Disposition: Home Clinical Impression: Vasovagal syncope Instructions: Fainting Activity Restrictions/Additional Instructions: Be sure to increase your fluid intake. Contact your primary doctor to discuss the indications for a Holter monitor or other further workup. Return to the emergency department for any new or worsening symptoms Prescriptions: No Action No Known Home Medications RF: 0 Referrals: Bob Hall MD [Primary Care Provider] -
[2021-01-01] MEDS: SODIUM CHLORIDE 0.9% 1,000 ML 1000 ML IV (07:18)
[2021-01-01 07:31] LABS: Add Manual Diff / Slide Review NO; Basophils Absolute Auto 0 /uL (0-100); Basophils Percent Auto 0.6 % (0-2); Eosinophils Absolute Auto 200 /uL (0-450); Eosinophils Percent Auto 2.7 % (2-4); Hematocrit 43.4 % (36-46); Hemoglobin 14.7 g/dL (12.0-16.0); Lymphocytes Absolute Auto 1500 /uL (1100-4500); Lymphocytes Percent Auto 23.5 % (25-40); Mean Corpuscular HGB Conc 33.8 % (30-36); Mean Corpuscular Hemoglobin 30.3 PG (26-34); Mean Corpuscular Volume 89.5 fL (80-100); Monocytes Absolute Auto 200 /uL (0-900); Monocytes Percent Auto 3.3 % (3-14); Neutrophils Absolute Auto 4400 /uL (1500-7000); Neutrophils Percent Auto 69.9 % (50-75); Platelet Count 197 X10^3/uL (150-400); Red Blood Cell Count 4.85 X10^6/uL (4.0-5.2); Red Cell Distribution Width 13.4 % (11.6-14.8); White Blood Cell Count 6.3 X10^3/uL (4.5-11.0)
[2021-01-01 07:38] LABS: Alanine Aminotransferase 30 IU/L (<35); Albumin 4.6 g/dL (3.5-5.0); Albumin Globulin Ratio 1.5 (1.0-2.8); Alkaline Phosphatase 63 U/L (38-126); Aspartate Aminotransferase 32 IU/L (14-36); BUN Creatinine Ratio 17.9 (6-22); Bilirubin Total 0.9 mg/dL (0.2-1.3); Blood Urea Nitrogen 17 mg/dL (7-17); Carbon Dioxide 27 mmol/L (22-32); Chloride 103 mmol/L (98-107); Estimated Glomerular Filt Rate 58.2 mL/min (>60); Glucose 147 mg/dL (80-110); HEMOLYSIS < 15 (0-50); Lipase 115 U/L (23-300); Potassium 4.6 mmol/L (3.4-5.1); Sodium 138 mmol/L (137-145); Total Protein 7.6 g/dL (6.3-8.2)
[2021-01-01 07:45] LABS: COVID19 -Nasal RAPID Negative (Negative)
== END 2021-01-01 09:04 | disposition home or self-care (01) ==
PROVIDERS: Emergency Provider Emergency Medicine; PCP Family Medicine
DX: R55 Syncope and collapse (principal); R19.7 Diarrhea, unspecified; R10.9 Unspecified abdominal pain; Z20.822 Contact with and (suspected) exposure to COVID-19
CPT/HCPCS: 36415; 80053; 82272; 83690; 85025; 87635; 93005; 96360; 99284; C9803

== ENCOUNTER → 2021-02-12 09:26 | Outpatient (CLI) | payer MEDICARE, OTHER, SELFPAY ==
[2021-02-12 10:32] LABS: Cholesterol 242 mg/dL (140-199); HDL Cholesterol 65 mg/dL (40-60); LDL Cholesterol Calculated 144 mg/dL (<100); Magnesium 1.7 mg/dL (1.6-2.3); Triglycerides 164 mg/dL (35-150)
[2021-02-12 11:15] LABS: TSH w/ Reflex to FT4 2.88 uIU/mL (0.47-4.68)
[2021-02-12 11:22] LABS: Vitamin B12 481 pg/mL (239-931)
[2021-02-12 12:34] LABS: Folate > 20.0 ng/mL (2.76-20.0)
== END ==
PROVIDERS: PCP Family Medicine; Referring Provider Family Medicine; Visit Provider Family Medicine
DX: R55 Syncope and collapse (principal)
CPT/HCPCS: 36415; 80061; 82607; 82746; 83735; 84443

== ENCOUNTER → 2021-02-12 09:29 | Outpatient (CLI) | payer MEDICARE, OTHER, SELFPAY ==
--- NOTE | 2021-03-20 07:47 | P.HOLT.S_ITS ---
Audio Production Manager Report Referral & Results Date Patient Seen: 02/12/21 Requesting provider: Bob Hall Indication: Syncope Duration of monitoring (days): 14 Diary information: There was 1 patient triggered event and 1 patient diary entry These events were associated variably with (within 45 seconds) sinus rhythm, PVCs, and SVT Data: Minimum heart rate identified was 40 beats per minute at 04:38 on 02/26/2021 Maximum sinus heart rate was 129 beats per minute at 13:09 on 02/18/2021 Maximum overall heart rate was 132 beats per minute at 18:36 on 02/25/2021 during a 7 beat run of SVT/atrial tachycardia. Less than 1% of identified beats were ventricular or supraventricular ectopic in origin, which would classify them as rare. There were 3 runs of SVT the fastest also being the longest run There were 24 separate episodes of second-degree AV block type 2 and type 1 (Wenckebach block) present. No pauses were noted a greater than 3 seconds Impression: 14 day child monitor on a patient with reported syncope showing evidence of second-degree AV block both type 1 and type 2. This could be a etiology for syncope despite the fact that no worrisome lengthy pauses were identified due to this dysrhythmia on this particular study Clinical correlation suggested Note: This study was received by [facility] staff electronically on March 19, 2021, any delays in reviewing data or primarily due to delays at [employer]
== END ==
PROVIDERS: PCP Family Medicine; Referring Provider Family Medicine; Visit Provider Family Medicine
DX: R55 Syncope and collapse (principal)
CPT/HCPCS: 36415; 80061; 82607; 82746; 83735; 84443; 93246; 93248

== ENCOUNTER → 2021-02-27 13:23 | Outpatient (CLI) | payer MEDICARE, OTHER, SELFPAY ==
--- NOTE | 2021-02-27 13:25 | DI.ECHO.S_ITS ---
[place]---------+ [facility] +---------+ : : [address] : : : : [id number] : : : : Phone: [phone]+ Echocardiogram Report + + :Name: KERA LIANG Study Date: 02/27/2021 Height: 66 in : :[facility] ReadingLocation: Weight: 180 lb : : Gender: Female BSA: 1.9 m2 : :: 1950 Age: 70 yrs BP: 137/81 mmHg: :Reason For Study: SYNCOPE : :Ordering Physician: DAYNE, : :DARRIN Performed By: Yelena Higgins : :Referring: DARRIN OSCAR : + + Interpretation Summary The ejection fraction is estimated to be 55-60%. There is no significant valvular heart disease. Procedure: A two-dimensional transthoracic echocardiogram with color flow and Doppler was performed. The study quality was technically adequate. There is no prior echocardiogram noted for this patient. The patient was in sinus bradycardia with heart rates between 47-54 bpm during the exam. Left Ventricle: The left ventricle is normal in size and wall thickness. The ejection fraction is estimated to be 55-60%. There are no obvious focal wall motion abnormalities noted but poor endocardial definition reduces the sensitivity for the detection of such. Right Ventricle: The right ventricle is normal in size and function. Atria: The left atrium is mildly dilated. Right atrial size is normal. There is no Doppler evidence for an interatrial shunt. Mitral Valve: The mitral valve is normal in structure and function. There is trace mitral regurgitation. Aortic Valve: The aortic valve is trileaflet. The aortic valve opens well. There is no aortic valve stenosis. No aortic regurgitation is present. Tricuspid Valve: The tricuspid valve is normal in structure and function. There is trace tricuspid regurgitation. Pulmonary artery pressures cannot be estimated because of the lack of a measurable TR jet velocity but the IVC suggests a CVP of around 3 mmHg. Pulmonic Valve: The pulmonic valve leaflets are thin and pliable; valve motion is normal. There is mild pulmonic regurgitation. Great Vessels: The aortic root is normal size. The dimensions of the ascending aorta are normal. The IVC is of normal diameter and collapses greater than 50% with a sniff. This suggests a low right atrial pressure of 3 mm Hg. Pericardium/ Pleura There is no pericardial effusion. There is no pleural effusion. MMode/2D Measurements & Calculations LVIDd: 4.5 cm LVOT diam: 2.0 cm LVIDs: 2.7 cm Ao root diam: 2.9 cm FS: 39.6 % asc Aorta Diam: 2.9 cm IVSd: 0.88 cm Ao Arch Diam (Prox Trans): 2.8 cm LVPWd: 1.1 cm LV martinez. diameter/BSA (cm/m^2): 2.3 LV sys. diameter/BSA (cm/m^2): 1.4 LA A2 area: 22.1 cm2 RA long axis: 5.3 cm LA A4 area: 21.6 cm2 RA area: 18.3 cm2 LA length (vol): 5.6 cm RA vol: 54.2 ml LA vol: 72.6 ml RA : 28.4 ml/m2 LA vol index: 37.9 ml/m2 IVC diam: 1.6 cm RVD1 (basal): 3.8 cm TAPSE: 1.8 cm Doppler Measurements & Calculations Ao V2 max: 140.3 cm/sec LVOT Max Mesfin: 86.1 cm/sec Ao V2 mean: 96.4 cm/sec LV V1 max P.0 mmHg Ao max P.9 mmHg LV V1 VTI: 16.7 cm Ao mean P.1 mmHg KAREL(I,D): 1.8 cm2 Ao V2 VTI: 29.3 cm KAREL(V,D): 2.0 cm2 sev ratio: 0.57 KAREL indexed to BSA (cm^2/m^2): 0.96 MV E max mesfin: 55.1 cm/sec PA pr(Accel): 44.7 mmHg MV A max mesfin: 48.9 cm/sec MV E/A: 1.1 Med Peak E' Mesfin: 7.5 cm/sec E/E' med: 7.4 Lat Peak E' Mesfin: 10.8 cm/sec E/E' lat: 5.1 E/e' average: 6.2 MV dec time: 0.26 sec SV(LVOT): 53.9 ml Reading Physician:04:19 PM
== END ==
PROVIDERS: PCP Family Medicine; Referring Provider Family Medicine; Visit Provider Family Medicine
DX: I37.1 Nonrheumatic pulmonary valve insufficiency (principal); R55 Syncope and collapse
CPT/HCPCS: 93306

== ENCOUNTER → 2021-10-31 12:35 | Outpatient (ROUT) | payer MEDICARE, OTHER, SELFPAY ==
[2021-11-03 06:51] LABS: Fecal Immunochemical Test Negative (Negative)
== END ==
PROVIDERS: PCP Family Medicine; Visit Provider Family Medicine
DX: Z12.11 Encounter for screening for malignant neoplasm of colon (principal)
CPT/HCPCS: 82274

== ENCOUNTER → 2022-05-08 07:44 | Outpatient (CLI) | payer MEDICARE, OTHER, SELFPAY ==
--- NOTE | 2022-05-08 07:46 | DI.RAD.S_ITS ---
PROCEDURE: XR WRIST RT MIN 3V INDICATIONS: wrist pain TECHNIQUE: 4 views of the wrist were acquired. COMPARISON: None. FINDINGS: Bones: No fractures or dislocations. Mild osteoarthritic changes are noted along radial aspect of right wrist more prominent at 1st CMC joint. No suspicious bony lesions. Scaphoid view: Scaphoid is intact Soft tissues: No suspicious soft tissue calcifications. IMPRESSION: No gross acute right wrist fracture or dislocation. Mild wrist joint osteoarthritis. Dictated by: Yunier Mcintosh M.D. on 05/08/2022 at 8:12 Approved by: Yunier Mcintosh M.D. on 05/08/2022 at 8:13
== END ==
PROVIDERS: PCP Family Medicine; Referring Provider Registered Nurse; Visit Provider Registered Nurse
DX: M25.531 Pain in right wrist (principal); M19.031 Primary osteoarthritis, right wrist
CPT/HCPCS: 73110

== ENCOUNTER → 2023-03-23 13:07 | Outpatient (CLI) | payer MEDICARE, OTHER, SELFPAY ==
[2023-03-24 17:13] LABS: Fecal Immunochemical Test Negative (Negative)
== END ==
PROVIDERS: PCP Family Medicine; Referring Provider Family Medicine; Visit Provider Family Medicine
DX: Z12.11 Encounter for screening for malignant neoplasm of colon (principal)
CPT/HCPCS: 82274

== ENCOUNTER → 2023-03-24 11:57 | Outpatient (CLI) | payer MEDICARE, OTHER, SELFPAY ==
--- NOTE | 2023-03-24 11:59 | DI.MG.S_ITS ---
BILATERAL DIGITAL DIAGNOSTIC MAMMOGRAM 3D/2D SHORT-TERM FOLLOW-UP: 03/24/2023 CLINICAL: Short term follow up of the right breast, due for bilateral imaging. Comparison is made to exams dated: 10/03/2018 mammogram, 09/16/2018 mammogram, and 01/14/2015 mammogram - [facility]. Both breasts are heterogeneously dense, which may obscure small masses (category c / 51-75% glandular tissue). There is a stable region of architectural distortion in the right breast posterior depth lateral region seen on the craniocaudal view only. This is unchanged from 2008. No other significant masses, calcifications, or other findings are seen in either breast. IMPRESSION: BENIGN There is no mammographic evidence of malignancy. A 1 year screening mammogram is recommended. Based on the Tyrer Cuzick model (a risk assessment model) the patient's lifetime risk is 5.6% and her 10 year risk is 4.2%. According to the ACR, ACS, and NCCN guidelines, an annual breast MRI exam along with mammogram is recommended if the patient's lifetime risk is 20% or greater. This exam was interpreted at Station ID: [id number]. NOTE: For mammograms, a report in lay terms will be sent to the patient. Approximately 15% of breast malignancies will not be visualized mammographically. In the management of a palpable breast mass, a negative mammogram must not discourage biopsy of a clinically suspicious lesion. Electronically Signed By: Cecy Miles M.D. lk/:03/24/2023 12:50:57 letter sent: Normal Exam ACR BI-RADS Category 2: Benign Finding(s) 3342F
== END ==
PROVIDERS: PCP Family Medicine; Referring Provider Family Medicine; Visit Provider Family Medicine
DX: R92.8 Other abnormal and inconclusive findings on diagnostic imaging of breast (principal)
CPT/HCPCS: 77066; G0279

== ENCOUNTER → 2024-04-03 10:22 | Outpatient (CLI) | payer MEDICARE, OTHER, SELFPAY ==
--- NOTE | 2024-04-03 10:24 | DI.RAD.S_ITS ---
PROCEDURE: XR FOOT RT MIN 3V INDICATIONS: metatarasal pain TECHNIQUE: 3 views of the foot were acquired. COMPARISON: None. FINDINGS: Bones: No fractures or dislocations. No suspicious bony lesions. Osteoarthritic changes to the tarsal-tarsal joints, metatarsal tarsal joints and distal interphalangeal joints. Enthesophytes along the plantar aspect of the calcaneus. Soft tissues: No sizable from tibiotalar joint effusion. Achilles tendon appears normal. IMPRESSION: 1. No acute fracture or dislocation. 2. Osteoarthritic changes as above. Dictated by: Forest Cifuentes M.D. on 04/03/2024 at 13:24 Approved by: Forest Cifuentes M.D. on 04/03/2024 at 13:30
== END ==
PROVIDERS: PCP Family Medicine; Referring Provider Family Medicine; Visit Provider Family Medicine
DX: M89.8X7 Other specified disorders of bone, ankle and foot (principal)
CPT/HCPCS: 73630

== ENCOUNTER → 2024-04-10 16:55 | Outpatient (CLI) | payer MEDICARE, OTHER, SELFPAY ==
--- NOTE | 2024-04-10 16:56 | DI.MG.S_ITS ---
BILATERAL DIGITAL SCREENING MAMMOGRAM 3D/2D WITH CAD: 04/10/2024 CLINICAL: Routine screening. Comparison is made to exams dated: 03/24/2023 mammogram, 09/16/2018 mammogram, 01/14/2015 mammogram, 10/03/2018 mammogram, 11/15/2007 mammogram, and 11/02/2007 mammogram - [facility]. Both breasts are heterogeneously dense, which may obscure small masses (category c / 51-75% glandular tissue). Current study was also evaluated with a Computer Aided Detection (CAD) system. No significant masses, calcifications, or other findings are seen in either breast. There has been no significant interval change. IMPRESSION: NEGATIVE There is no mammographic evidence of malignancy. A 1 year screening mammogram is recommended. Based on the Tyrer Cuzick model (a risk assessment model) the patient's lifetime risk is 5.3% and her 10 year risk is 4.3%. According to the ACR, ACS, and NCCN guidelines, an annual breast MRI exam along with mammogram is recommended if the patient's lifetime risk is 20% or greater. This exam was interpreted at Station ID: [id number]. NOTE: For mammograms, a report in lay terms will be sent to the patient. Approximately 15% of breast malignancies will not be visualized mammographically. In the management of a palpable breast mass, a negative mammogram must not discourage biopsy of a clinically suspicious lesion. Electronically Signed By: Quyen Porras M.D., Ph.D. yong/katharine:04/11/2024 12:02:52 letter sent: Normal Exam ACR BI-RADS Category 1: Negative 3341F
== END ==
PROVIDERS: PCP Family Medicine; Referring Provider Family Medicine; Visit Provider Family Medicine
DX: Z12.31 Encounter for screening mammogram for malignant neoplasm of breast (principal); R92.333 Mammographic heterogeneous density, bilateral breasts
CPT/HCPCS: 77063; 77067